=== PATIENT | male | born 1995 | race Caucasian/White ===

== ENCOUNTER 2018-11-06 08:11 | Emergency (ER) | payer OTHER ==
[2018-11-06] MEDS ORDERED: ONDANSETRON 4 MG/2 ML VIAL IVP STA (08:21)
[2018-11-06] MEDS ORDERED: SODIUM CHLORIDE 0.9% 1,000 ML IV ONE (08:21)
--- NOTE | 2018-11-06 08:37 | ED ---
General Adult HPI - General Chief complaint: Nausea/Vomiting/Diarrhea Stated complaint: Vomiting/lightheaded Time Seen by Provider: 11/06/18 08:14 Source: patient Mode of arrival: ambulatory Limitations: no limitations - History of Present Illness Initial comments: 23-year-old male presenting for 3 days of vomiting, upper abdominal pain. History was provided by both mother who is at bedside and patient who is actively vomiting. Patient states on Monday began vomiting, he states he has some upper abdominal pain at that time he states is sharp pain without radiation. Patient states it comes and goes. Patient states on Monday single a bit better but today symptoms returned worsened.Patient complaining of upper abdominal pain, sharp, colicky no radiation again. Dry heaving no vomiting. Patient states his stool has been softer than usual. Patient denies fevers. But states she has chills. Denies bloody stool. Patient was concerned it was from food poisoning. Denies travel or sick contacts. Denies chronic NSAID use, or ETOH abuse. She denies lower abdominal pain.Remaining review system negative - Related Data Previous Rx's Medication Instructions Recorded Ondansetron Odt [Zofran Odt] 4 mg PO Q8HR PRN 3 Days #9 tab 11/06/18 Allergies Allergy/AdvReac Type Severity Reaction Status Date / Time No Known Allergies Allergy Verified 11/06/18 08:36 Review of Systems ROS Statement: Those systems with pertinent positive or pertinent negative responses have been documented in the HPI. ROS Other: All systems not noted in ROS Statement are negative. Past Medical History Additional Past Medical History / Comment(s): back pain History of Any Multi-Drug Resistant Organisms: None Reported Additional Past Surgical History / Comment(s): back fusion Past Psychological History: No Psychological Hx Reported Smoking Status: Never smoker Past Alcohol Use History: None Reported Past Drug Use History: Marijuana General Exam - General Exam Comments Initial Comments: General: The patient is awake and alert, dry heaving upon arrival. Eye: Pupils are equal, round and reactive to light, extra-ocular movements are intact. No nystagmus. There is normal conjunctiva bilaterally. No signs of icterus. Ears, nose, mouth and throat: There are moist mucous membranes and no oral lesions. Neck: The neck is supple, there is no tenderness or JVD. Cardiovascular: There is a regular rate and rhythm. No murmur, rub or gallop is appreciated. Respiratory: Lungs are clear to auscultation, respirations are non-labored, breath sounds are equal. No wheezes, stridor, rales, or rhonchi. Gastrointestinal: Soft, non-distended, abdomen tenderness to patient the left upper quadrant epigastric region, however the abdomen is without masses or organomegaly noted. There is no rebound or guarding present. Bowel sounds are unremarkable. Musculoskeletal: Normal ROM, no tenderness. Strength 5/5. Sensation intact. Radila pulses equal bilaterally 2+. Neurological: A&O x 3. CN II-XII intact, There are no obvious motor or sensory deficits. Coordination appears grossly intact. Speech is normal. Skin: Skin is warm and dry and no rashes or lesions are noted. Psychiatric: Cooperative, appropriate mood & affect, normal judgment. Limitations: no limitations Course Vital Signs 11/06/18 11/06/18 08:17 11:52 Temperature 97.4 F L 98 F Pulse Rate 101 H 80 Respiratory 18 16 Rate Blood Pressure 148/79 118/69 O2 Sat by Pulse 97 98 Oximetry Medical Decision Making - Medical Decision Making 23-year-old male presented for vomiting 3 days. Patient dry heaving upon history taking. Patient complains of epigastric left upper quadrant abdominal p ain. Reproducible exam however no rebound tenderness guarding. No rigidity noted. Negative heel jar patient does not appear peritoneal. Patient denies history of fever states he has had some chills. She is afebrile upon arrival denies bloody stools. Patient denies recent travel. Patient concerned of food poisoning. Patient's symptoms controlled with Reglan and Zofran. Patient given IV hydration. Laboratory studies stable. No significant arrangements. Patient's lipase within normal limits. With patient consent CT the abdomen and pelvis was obtained revealing no acute intra-abdominal process more so findings consistent with an infection or inflammatory process. I discussed these findings and patient verbalized understanding. Patient was monitored in the ER to ensure resolution of symptoms. Patient appears well resting comfortably. He states he is agreeable discharge at this time. Return parameters were discussed and patient was discharged appearing well. - Lab Data Result diagrams: 11/06/18 08:45 11/06/18 08:45 Lab Results 11/06/18 11/06/18 Range/Units 08:45 08:45 WBC 10.8 H (3.8-10.6) k/uL RBC 5.07 (4.30-5.90) m/uL Hgb 13.7 (13.0-17.5) gm/dL Hct 40.5 (39.0-53.0) % MCV 79.7 L (80.0-100.0) fL MCH 26.9 (25.0-35.0) pg MCHC 33.7 (31.0-37.0) g/dL RDW 15.8 H (11.5-15.5) % Plt Count 239 (150-450) k/uL Neutrophils % 81 % Lymphocytes % 10 % Monocytes % 7 % Eosinophils % 1 % Basophils % 1 % Neutrophils # 8.7 H (1.3-7.7) k/uL Lymphocytes # 1.1 (1.0-4.8) k/uL Monocytes # 0.7 (0-1.0) k/uL Eosinophils # 0.1 (0-0.7) k/uL Basophils # 0.1 (0-0.2) k/uL Sodium 142 (137-145) mmol/L Potassium 3.6 (3.5-5.1) mmol/L Chloride 106 (98-107) mmol/L Carbon Dioxide 21 L (22-30) mmol/L Anion Gap 15 mmol/L BUN 23 H (9-20) mg/dL Creatinine 0.97 (0.66-1.25) mg/dL Est GFR (CKD-EPI)AfAm >90 (>60 ml/min/1.73 sqM) Est GFR (CKD-EPI)NonAf >90 (>60 ml/min/1.73 sqM) Glucose 111 H (74-99) mg/dL Calcium 10.4 H (8.4-10.2) mg/dL Total Bilirubin 0.5 (0.2-1.3) mg/dL AST 26 (17-59) U/L ALT 35 (21-72) U/L Alkaline Phosphatase 88 (38-126) U/L Total Protein 8.0 (6.3-8.2) g/dL Albumin 5.0 (3.5-5.0) g/dL Lipase 64 (23-300) U/L Disposition Clinical Impression: Acute vomiting, Enteritis Disposition: HOME SELF-CARE Condition: Good Instructions (If sedation given, give patient instructions): Acute Nausea and Vomiting (ED) Additional Instructions: Please use medication as discussed. Please follow-up with family doctor in the next 2 days, Please return to emergency room if the symptoms increase or worsen or for any other concerns. Prescriptions: Ondansetron Odt [Zofran Odt] 4 mg PO Q8HR PRN 3 Days #9 tab PRN Reason: Nausea Is patient prescribed a controlled substance at d/c from ED?: No Referrals: Maverick Modi PAC [REFERRING] - 1-2 days Time of Disposition: 11:35
[2018-11-06] MEDS ORDERED: SODIUM CHLORIDE 0.9% 1,000 ML IV SCH (08:45)
[2018-11-06 09:12] LABS: Basophils # (A) 0.1 k/uL (0-0.2); Basophils % (A) 1 %; Eosinophils # (A) 0.1 k/uL (0-0.7); Eosinophils % (A) 1 %; HCT 40.5 % (39.0-53.0); HGB 13.7 gm/dL (13.0-17.5); Lymphocytes # (A) 1.1 k/uL (1.0-4.8); Lymphocytes % (A) 10 %; MCH 26.9 pg (25.0-35.0); MCHC 33.7 g/dL (31.0-37.0); MCV 79.7 fL (80.0-100.0); Mean Platelet Volume 8.3; Monocytes # (A) 0.7 k/uL (0-1.0); Monocytes % (A) 7 %; Neutrophils # (A) 8.7 k/uL (1.3-7.7); Neutrophils % (A) 81 %; Platelet Count 239 k/uL (150-450); RBC 5.07 m/uL (4.30-5.90); RDW 15.8 % (11.5-15.5); WBC 10.8 k/uL (3.8-10.6)
[2018-11-06 09:14] LABS: ALT 35 U/L (21-72); AST 26 U/L (17-59); African American GFR (CKD) >90 (>60 ml/min/1.73 sqM); Alkaline Phosphatase 88 U/L (38-126); Anion Gap 15 mmol/L; Blood Urea Nitrogen 23 mg/dL (9-20); Calcium 10.4 mg/dL (8.4-10.2); Carbon Dioxide 21 mmol/L (22-30); Chloride 106 mmol/L (98-107); Glucose 111 mg/dL (74-99); Non-African American GFR(CKD) >90 (>60 ml/min/1.73 sqM); Potassium 3.6 mmol/L (3.5-5.1); Sodium 142 mmol/L (137-145); Total Bilirubin 0.5 mg/dL (0.2-1.3)
[2018-11-06] MEDS ORDERED: METOCLOPRAMIDE 5 MG/ML 2 ML VIAL IVP STA (09:29)
--- NOTE | 2018-11-06 10:12 | CT ---
EXAMINATION TYPE: CT abdomen pelvis w con DATE OF EXAM: 11/06/2018 COMPARISON: NONE HISTORY: 23-year-old male with abdominal pain and vomiting TECHNIQUE: Contiguous axial scanning of the abdomen and pelvis following administration of 100 ml Iso dolly 300 IV contrast. Delayed images through the kidneys and coronal/sagittal reconstructions perform ed. CT DLP: 643.6 mGycm Automated exposure control for dose reduction was used. FINDINGS: Heart normal size without pericardial effusion. Lung bases clear without pleural effusion. No focal liver lesion or biliary ductal dilatation. Gallbladder, adrenal glands, right kidney, spleen, and pancreas appear within normal limits. 9 mm cortical cyst anterior left kidney. Otherwise, symmetric uptake and excretion of contrast from b oth kidneys. Small focal area of cortical hypodensity upper pole left kidney does not persist on the delayed kidney images and seen to reflect beam hardening artifact from the spinal hardware. No dilated small bowel, free fluid, or free air. No mesenteric or retroperitoneal lymphadenopathy. Normal appendix. There appears to be generalized circumferential colonic wall thickening extending fr om the ascending colon distally to the sigmoid colon. No significant stool burden. Bladder urine distended. No abnormal fluid collection in the pelvis or pelvic lymphadenopathy seen. Bones: Postsurgical changes of posterior thoracolumbar fusion spanning from T10 through L2 levels. Th ere seems to be some vertebroplasty change at the T12 level with some residual fracture lucencies dem onstrated. Correlation can be made as to the time since spinal fusion. No significant retropulsion in to the spinal canal. IMPRESSION: 1. MILD CIRCUMFERENTIAL WALL THICKENING EXTENDING FROM THE ASCENDING COLON TO THE SIGMOID COLON. REINALDO ELATE FOR NONSPECIFIC INFECTIOUS OR INFLAMMATORY COLITIS. NO ABSCESS OR FREE AIR. 2. T10-L2 POSTERIOR SPINAL FUSION WITH T12 VERTEBROPLASTY AND RESIDUAL FRACTURE LUCENCIES DEMONSTRATE D WITHIN T12. CORRELATE TO TIME SINCE THE PATIENT'S INJURY AND SURGERY.
[2018-11-06 11:53] VITALS: BP 118/69; PULSE 80; RESP 16; TEMP 98
== END 2018-11-06 11:52 | disposition home or self-care (01) ==
LOC: EC 08:11
DX: K52.9 Noninfective gastroenteritis and colitis, unspecified (principal)
CPT/HCPCS: 36415; 80053; 83690; 85025; 74177; 99284; 96374; 96375; 96361 ×3; J2765; J2405; Q9967

== ENCOUNTER 2019-06-09 11:19 | Emergency (ER) | payer OTHER ==
[2019-06-09] MEDS ORDERED: ONDANSETRON 4 MG/2 ML VIAL IVP STA (11:51)
[2019-06-09] MEDS ORDERED: DICYCLOMINE 10 MG/ML 2 ML AMP IM STA (11:51)
[2019-06-09] MEDS ORDERED: SODIUM CHLORIDE 0.9% 2,000 ML IV STA (11:51)
[2019-06-09] MEDS ORDERED: FAMOTIDINE 20 MG TAB PO STA (11:51)
--- NOTE | 2019-06-09 11:54 | ED ---
Nausea/Vomiting/Diarrhea HPI - General Chief complaint: Nausea/Vomiting/Diarrhea Stated complaint: vomiting, abd pain Time Seen by Provider: 06/09/19 11:29 Source: patient Mode of arrival: ambulatory Limitations: no limitations - History of Present Illness Initial comments: Patient is a 23-year-old male presenting to emergency Department with a chief co mplaint of abdominal pain. Patient reports the pain is located in the lower abdominal region and begin this morning at 6 AM. Patient reports multiple episodes of nonbilious, nonbloody vomiting and nonbloody diarrhea. Patient does report chills but denies any fevers at home. States he feels fatigued due to the cost of vomiting and dry heaving. States the pain is constant and not related to by mouth intake. Patient reports she has not been able to eat anything since the onset of symptoms. Patient reports last night he ate home- cooked chicken and pork. Denies taking any medication to alleviate the symptoms. Denies any chest pain or abdominal pain back pain. Does have surgical history of appendectomy. - Related Data Previous Rx's Medication Instructions Recorded Ondansetron Odt [Zofran Odt] 4 mg PO Q8HR PRN 3 Days #9 tab 11/06/18 Ondansetron Odt [Zofran Odt] 4 mg PO Q8HR PRN #20 tab 06/09/19 Allergies Allergy/AdvReac Type Severity Reaction Status Date / Time No Known Allergies Allergy Verified 06/09/19 11:27 Review of Systems ROS Statement: Those systems with pertinent positive or pertinent negative responses have been documented in the HPI. ROS Other: All systems not noted in ROS Statement are negative. Past Medical History Additional Past Medical History / Comment(s): back pain History of Any Multi-Drug Resistant Organisms: None Reported Past Surgical History: Appendectomy Additional Past Surgical History / Comment(s): back fusion Past Psychological History: No Psychological Hx Reported Smoking Status: Never smoker Past Alcohol Use History: None Reported Past Drug Use History: Marijuana General Exam Limitations: no limitations General appearance: alert, in no apparent distress Head exam: Present: atraumatic, normocephalic, normal inspection Eye exam: Present: normal appearance, PERRL, EOMI Pupils: Present: normal accommodation ENT exam: Present: normal exam Neck exam: Present: normal inspection, full ROM Respiratory exam: Present: normal lung sounds bilaterally. Absent: respiratory distress, wheezes Cardiovascular Exam: Present: regular rate, normal rhythm, normal heart sounds GI/Abdominal exam: Present: soft, tenderness (Lower abdominal tetanus. Negative McBurney point), normal bowel sounds. Absent: distended, guarding, rebound, rigid Extremities exam: Present: normal inspection, full ROM Back exam: Present: normal inspection, full ROM Neurological exam: Present: alert, oriented X3 Psychiatric exam: Present: normal affect, normal mood Skin exam: Present: warm, dry, intact, normal color Course Vital Signs 06/09/19 06/09/19 06/09/19 11:25 12:06 13:33 Temperature 98.4 F Pulse Rate 95 77 Respiratory 20 16 Rate Blood Pressure 142/95 104/53 O2 Sat by Pulse 98 98 Oximetry Medical Decision Making - Medical Decision Making Patient is 23-year-old male presenting to emergency Department with chief complaint of nausea vomiting diarrhea. On exam patient has diffuse lower abdominal tenderness. No symptoms. Laboratory work shows leukocytosis which I suspect secondary to the vomiting. Patient does have elevated plasma protein which is suspect is secondary to volume loss from the vomiting or diarrhea. Patient was given 2 L of fluids, antiemetics, Protonix and Pepcid. I suspect the patient has gastroenteritis. Patient did eat pork meat last night before going to bed. On reevaluation patient reports improvement of symptoms. Patient will be discharged with a Zofran starter pack and a prescription for Zofran. Patient vised to follow a brat diet. Return parameters thoroughly discussed the patient is sitting and agreeable. He was advised to drink lots of fluids. Case discussed with physician. - Lab Data Result diagrams: 06/09/19 11:49 06/09/19 11:49 Lab Results 06/09/19 06/09/19 06/09/19 Range/Units 11:49 11:49 12:41 WBC 11.3 H (3.8-10.6) k/uL RBC 4.83 (4.30-5.90) m/uL Hgb 14.9 (13.0-17.5) gm/dL Hct 42.1 (39.0-53.0) % MCV 87.1 (80.0-100.0) fL MCH 30.9 (25.0-35.0) pg MCHC 35.4 (31.0-37.0) g/dL RDW 12.0 (11.5-15.5) % Plt Count 239 (150-450) k/uL Neutrophils % 87 % Lymphocytes % 6 % Monocytes % 5 % Eosinophils % 0 % Basophils % 0 % Neutrophils # 9.9 H (1.3-7.7) k/uL Lymphocytes # 0.7 L (1.0-4.8) k/uL Monocytes # 0.6 (0-1.0) k/uL Eosinophils # 0.0 (0-0.7) k/uL Basophils # 0.0 (0-0.2) k/uL Sodium 141 (137-145) mmol/L Potassium 4.4 (3.5-5.1) mmol/L Chloride 104 (98-107) mmol/L Carbon Dioxide 22 (22-30) mmol/L Anion Gap 15 mmol/L BUN 18 (9-20) mg/dL Creatinine 0.86 (0.66-1.25) mg/dL Est GFR (CKD-EPI)AfAm >90 (>60 ml/min/1.73 sqM) Est GFR (CKD-EPI)NonAf >90 (>60 ml/min/1.73 sqM) Glucose 134 H (74-99) mg/dL Calcium 10.4 H (8.4-10.2) mg/dL Total Bilirubin 0.6 (0.2-1.3) mg/dL AST 38 (17-59) U/L ALT 33 (4-49) U/L Alkaline Phosphatase 91 (38-126) U/L Total Protein 8.7 H (6.3-8.2) g/dL Albumin 5.5 H (3.5-5.0) g/dL Lipase 30 (23-300) U/L Urine Color Yellow Urine Appearance Clear (Clear) Urine pH 8.5 H (5.0-8.0) Ur Specific [place] 1.027 (1.001-1.035) Urine Protein 1+ H (Negative) Urine Glucose (UA) Negative (Negative) Urine Ketones 1+ H (Negative) Urine Blood Trace H (Negative) Urine Nitrite Negative (Negative) Urine Bilirubin Negative (Negative) Urine Urobilinogen <2.0 (<2.0) mg/dL Ur Leukocyte Esterase Negative (Negative) Urine RBC 6 H (0-5) /hpf Urine WBC 1 (0-5) /hpf Ur Squamous Epith Cells <1 (0-4) /hpf Urine Mucus Few H (None) /hpf Disposition Clinical Impression: Gastroenteritis, Nausea vomiting and diarrhea Disposition: HOME SELF-CARE Condition: Stable Instructions (If sedation given, give patient instructions): Gastroenteritis (D C) Additional Instructions: Eat bananas, rice, applesauce and toast diet. Drink lots of fluids. Return to emergency department if symptoms worsen. Prescriptions: Ondansetron Odt [Zofran Odt] 4 mg PO Q8HR PRN #20 tab PRN Reason: Nausea Is patient prescribed a controlled substance at d/c from ED?: No Referrals: Maverick Modi PAC [REFERRING] - 1-2 days Time of Disposition: 13:24
[2019-06-09 12:03] LABS: Basophils % (A) 0 %; Eosinophils % (A) 0 %; HCT 42.1 % (39.0-53.0); HGB 14.9 gm/dL (13.0-17.5); Lymphocytes # (A) 0.7 k/uL (1.0-4.8); Lymphocytes % (A) 6 %; MCH 30.9 pg (25.0-35.0); MCHC 35.4 g/dL (31.0-37.0); MCV 87.1 fL (80.0-100.0); Mean Platelet Volume 8.5; Monocytes # (A) 0.6 k/uL (0-1.0); Monocytes % (A) 5 %; Neutrophils # (A) 9.9 k/uL (1.3-7.7); Neutrophils % (A) 87 %; Platelet Count 239 k/uL (150-450); RBC 4.83 m/uL (4.30-5.90); WBC 11.3 k/uL (3.8-10.6)
[2019-06-09 12:07] VITALS: TEMP 98.4
[2019-06-09 12:13] LABS: ALT 33 U/L (4-49); AST 38 U/L (17-59); African American GFR (CKD) >90 (>60 ml/min/1.73 sqM); Albumin 5.5 g/dL (3.5-5.0); Alkaline Phosphatase 91 U/L (38-126); Anion Gap 15 mmol/L; Blood Urea Nitrogen 18 mg/dL (9-20); Calcium 10.4 mg/dL (8.4-10.2); Carbon Dioxide 22 mmol/L (22-30); Chloride 104 mmol/L (98-107); Glucose 134 mg/dL (74-99); Non-African American GFR(CKD) >90 (>60 ml/min/1.73 sqM); Potassium 4.4 mmol/L (3.5-5.1); Sodium 141 mmol/L (137-145); Total Bilirubin 0.6 mg/dL (0.2-1.3); Total Protein 8.7 g/dL (6.3-8.2)
[2019-06-09] MEDS ORDERED: SODIUM CHLORIDE 0.9% 1,000 ML IV STA (12:38)
[2019-06-09] MEDS ORDERED: ONDANSETRON 4 MG ODT STARTER PACK 2 TAB BTL PO STA (12:53)
[2019-06-09] MEDS ORDERED: METOCLOPRAMIDE 5 MG/ML 2 ML VIAL IVP STA (12:53)
[2019-06-09] MEDS ORDERED: diphenhydrAMINE 50 MG/ML 1 ML VIAL IVP STA (12:53)
[2019-06-09 13:27] LABS: Appearance,Urine Clear (Clear); Bilirubin,Urine Negative (Negative); Blood,Urine Trace (Negative); Color,Urine Yellow; Glucose,Urine (UA) Negative (Negative); Ketones,Urine 1+ (Negative); Leukocyte Esterase,Urine Negative (Negative); Mucus,Urine Few /hpf; Nitrite,Urine Negative (Negative); PH, Urine 8.5 (5.0-8.0); Protein,Urine 1+ (Negative); RBC,Urine 6 /hpf (0-5); Specific Gravity,Urine 1.027 (1.001-1.035); Squamous Epithelial Cell,Urine <1 /hpf (0-4); Urobilinogen,Urine <2.0 mg/dL (<2.0); WBC,Urine 1 /hpf (0-5)
[2019-06-09 13:34] VITALS: BP 104/53; PULSE 77; RESP 16
== END 2019-06-09 13:38 | disposition home or self-care (01) ==
LOC: EC 11:19
DX: K52.9 Noninfective gastroenteritis and colitis, unspecified (principal); D72.829 Elevated white blood cell count, unspecified; R77.9 Abnormality of plasma protein, unspecified; Z90.49 Acquired absence of other specified parts of digestive tract; Z87.39 Personal history of other diseases of the musculoskeletal system and connective tissue; Z98.1 Arthrodesis status; Z53.8 Procedure and treatment not carried out for other reasons
CPT/HCPCS: 36415; 80053; 83690; 85025; 81001; 99284; 96374; 96375 ×2; 96361; 96372; J1200; J0500; J2765; J2405; S0119